=== PATIENT | female | born 2000 | race Caucasian/White ===

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

== ENCOUNTER 2023-02-12 13:22 | Inpatient (IN) | payer MEDICAID, OTHER ==
[~2023-02-12] VITALS: Ht 152.4 cm; Wt 63.2 kg
[~2023-02-12 13:22] MED LIST changes: +BUPR150T12 PO; +CITA20TA7 PO; +CLIN150C17 PO; +INVE234I IM; +PALI1TAB2 PO; +PALI1TAB3 PO; +ZYPR5TAB2 PO
[2023-02-12 14:59] LABS: HEMOGLOBIN 14.6 g/dl (12.0-15.5); MEAN CORPUSCULAR HEMOGLOBIN 31.5 pg (27.0-33.0); MEAN CORPUSCULAR HGB CONC 33.2 g/dl (32.0-36.5); PLATELET COUNT, AUTOMATED 231 10^3/uL (150-450); RED BLOOD COUNT 4.63 10^6/uL (4.00-5.40); WHITE BLOOD COUNT 10.1 10^3/uL (4.0-10.0)
[2023-02-12 15:30] LABS: BARBITURATES URINE NEGATIVE (NEGATIVE); BENZODIAZEPINES URINE NEGATIVE (NEGATIVE); COCAINE METABOLITE URINE NEGATIVE (NEGATIVE); METHADONE URINE NEGATIVE (NEGATIVE)
[2023-02-12 15:31] LABS: OPIATES URINE NEGATIVE (NEGATIVE); PHENCYCLIDINE URINE NEGATIVE (NEGATIVE)
[2023-02-12 15:32] LABS: ETHYL ALCOHOL (ETHANOL) < 0.003 % (0.000-0.010)
[2023-02-12 15:33] LABS: AMPHETAMINES LEVEL URINE POSITIVE (NEGATIVE); CANNABINOIDS URINE POSITIVE (NEGATIVE)
[2023-02-12 15:34] LABS: ALBUMIN 4.4 G/DL (3.2-5.2); ALKALINE PHOSPHATASE 82 U/L (46-116); ALT/SGPT 10 U/L (7.0-40); AST/SGOT 9 U/L (<34); BILIRUBIN,DIRECT 0.2 MG/DL (<0.4); BILIRUBIN,TOTAL 0.5 MG/DL (0.3-1.2); BLOOD UREA NITROGEN 10 MG/DL (9-23); CALCIUM LEVEL 9.8 MG/DL (8.5-10.1); CARBON DIOXIDE LEVEL 27 MMOL/L (20-31); CHLORIDE LEVEL 106 MMOL/L (98-107); CREATININE FOR GFR 0.63 MG/DL (0.55-1.30); GLOMERULAR FILTRATION RATE > 60.0 (>60); GLUCOSE, FASTING 79 MG/DL (60-100); POTASSIUM SERUM 4.2 MMOL/L (3.5-5.1); SALICYLATE LEVEL < 3.0 MG/DL (<30); SODIUM LEVEL 140 MMOL/L (136-145); TOTAL PROTEIN 7.7 G/DL (5.7-8.2)
[2023-02-12 15:36] LABS: THYROID STIMULATING HORMONE 0.619 uIU/ML (0.55-4.78)
[2023-02-12 15:37] LABS: HCG, SERUM QUALITATIVE NEGATIVE (NEGATIVE)
[2023-02-12] MEDS ORDERED: MOM 30ML SUSPENSION UDC PO PRN (18:15)
[2023-02-12] MEDS ORDERED: NICOTINE 21MG/24HR 1 EA TRANSDERMAL TD PRN (18:15)
[2023-02-12] MEDS ORDERED: diphenhydrAMINE 25MG CAP PO PRN (18:15)
[2023-02-12] MEDS ORDERED: MAALOX 30 ML SUSP *UDC PO PRN (18:15)
[2023-02-12] MEDS ORDERED: CITA40TA7 PO (18:49)
[2023-02-12] MEDS ORDERED: INVE234I IM (18:49)
[2023-02-12] MEDS ORDERED: PALI1TAB PO (18:49)
[2023-02-12] MEDS ORDERED: HOME MED LIST COMPLETE! XX SCH (18:50)
[2023-02-12 21:48] VITALS: BP 112/66; TEMP 97.4; O2SAT 99
[2023-02-13 06:15] VITALS: BP 105/64; TEMP 98.2; O2SAT 98
[2023-02-13] MEDS: CitaloPRAM (CeleXA) 20 MG TAB PO SCH (08:15)
[2023-02-13 18:25] VITALS: BP 116/68; TEMP 98.8; O2SAT 97
[2023-02-14 06:29] VITALS: BP 116/66; TEMP 98; O2SAT 96
[2023-02-14] MEDS: CitaloPRAM (CeleXA) 20 MG TAB PO SCH (11:29)
[2023-02-14] MEDS: traZODone 50 MG TAB PO PRN (20:26)
[2023-02-15 06:45] VITALS: BP 113/55; TEMP 97.7; O2SAT 98
[2023-02-15 08:30] LABS: CHOLESTEROL RISK RATIO 3.17 (<5); LDL CHOLESTEROL 63.2 MG/DL (<100)
[2023-02-15 08:32] LABS: HEMOGLOBIN A1c 4.4 % (4.0-6.0)
[2023-02-15] MEDS: CitaloPRAM (CeleXA) 20 MG TAB PO SCH (09:21)
[2023-02-15] MEDS: PALIPERIDONE 3MG ER TAB (INVEGA) PO SCH ×2 (10:08→20:02)
[2023-02-15 18:22] VITALS: BP 127/58; TEMP 97.5; O2SAT 95
[2023-02-16 06:55] VITALS: BP 125/57; TEMP 97.9; O2SAT 96
[2023-02-16] MEDS: PALIPERIDONE 3MG ER TAB (INVEGA) PO SCH ×2 (08:56→21:36)
[2023-02-16] MEDS: CitaloPRAM (CeleXA) 20 MG TAB PO SCH (08:57)
[2023-02-16 16:14] VITALS: BP 114/67; TEMP 97.6; O2SAT 96
[2023-02-17 06:55] VITALS: BP 126/72; TEMP 99; O2SAT 99
[2023-02-17] MEDS: PALIPERIDONE 3MG ER TAB (INVEGA) PO SCH ×2 (09:33→20:09)
[2023-02-17] MEDS: CitaloPRAM (CeleXA) 20 MG TAB PO SCH (09:33)
[2023-02-17] MEDS ORDERED: PALIPERIDONE PAL 234MG/1.5ML INJ (INVEGA)(FREE PSY INPT ONLY) IM ONE (14:00)
[2023-02-17 16:22] VITALS: BP 124/74; TEMP 98.1; O2SAT 96
[2023-02-17] MEDS: IBUPROFEN 400MG TAB PO PRN (17:16)
[2023-02-17] MEDS: traZODone 50 MG TAB PO PRN (20:09)
[2023-02-18 06:21] VITALS: BP 134/77; TEMP 98.2; O2SAT 100
[2023-02-18] MEDS: PALIPERIDONE 3MG ER TAB (INVEGA) PO SCH ×2 (08:01→20:25)
[2023-02-18] MEDS: CitaloPRAM (CeleXA) 20 MG TAB PO SCH (08:01)
[2023-02-18] MEDS: ACETAMINOPHEN TAB 650MG DOSE (2X325MG) PO PRN ×2 (09:29→22:00)
[2023-02-18 18:08] VITALS: BP 130/87; TEMP 97.9; O2SAT 98
[2023-02-18] MEDS: traZODone 50 MG TAB PO PRN (20:25)
[2023-02-19 05:59] VITALS: BP 141/70; TEMP 98.8; O2SAT 99
[2023-02-19] MEDS: PALIPERIDONE 3MG ER TAB (INVEGA) PO SCH ×2 (08:20→20:20)
[2023-02-19] MEDS: CitaloPRAM (CeleXA) 20 MG TAB PO SCH (08:20)
[2023-02-19 16:31] VITALS: BP 132/61; TEMP 98.9; O2SAT 97
[2023-02-19] MEDS: ACETAMINOPHEN TAB 650MG DOSE (2X325MG) PO PRN (17:28)
[2023-02-19] MEDS: traZODone 50 MG TAB PO PRN (20:20)
[2023-02-20 06:43] VITALS: BP 128/60; TEMP 97.9; O2SAT 96
[2023-02-20] MEDS: CitaloPRAM (CeleXA) 20 MG TAB PO SCH (07:51)
[2023-02-20 16:15] VITALS: BP 129/73; TEMP 98; O2SAT 100
[2023-02-20] MEDS: ACETAMINOPHEN TAB 650MG DOSE (2X325MG) PO PRN (16:33)
[2023-02-20] MEDS: PALIPERIDONE 3MG ER TAB (INVEGA) PO SCH (20:06)
[2023-02-20] MEDS: traZODone 50 MG TAB PO PRN (20:06)
[2023-02-21 06:46] VITALS: BP 120/59; TEMP 97.1; O2SAT 98
[2023-02-21] MEDS: CitaloPRAM (CeleXA) 20 MG TAB PO SCH (09:54)
[2023-02-21] MEDS: PALIPERIDONE 3MG ER TAB (INVEGA) PO SCH (20:08)
[2023-02-21] MEDS: traZODone 50 MG TAB PO PRN (20:08)
[2023-02-22] MEDS: ACETAMINOPHEN TAB 650MG DOSE (2X325MG) PO PRN (04:18)
[2023-02-22 05:44] VITALS: BP 112/59; TEMP 97.8; O2SAT 100
[2023-02-22] MEDS: CitaloPRAM (CeleXA) 20 MG TAB PO SCH (08:17)
[2023-02-22 18:24] VITALS: BP 129/83; TEMP 98; O2SAT 100
[2023-02-22] MEDS: QUEtiapine FUMARATE 25 MG TAB PO SCH (20:02)
[2023-02-23 06:34] VITALS: BP 119/56; TEMP 97.1; O2SAT 99
[2023-02-23] MEDS: CitaloPRAM (CeleXA) 20 MG TAB PO SCH (08:26)
[2023-02-23 19:03] VITALS: BP 118/72; TEMP 98.8; O2SAT 98
[2023-02-23] MEDS: PRAZOSIN 1 MG CAP PO SCH (22:11)
[2023-02-23] MEDS: QUEtiapine FUMARATE 25 MG TAB PO SCH (22:12)
[2023-02-24 06:30] VITALS: BP 128/62; TEMP 98.3; O2SAT 96
[2023-02-24] MEDS: CitaloPRAM (CeleXA) 20 MG TAB PO SCH (08:52)
[2023-02-24 15:57] VITALS: BP 115/53; TEMP 96.2; O2SAT 95
[2023-02-24] MEDS: QUEtiapine FUMARATE 25 MG TAB PO SCH (20:46)
[2023-02-24] MEDS: PRAZOSIN 1 MG CAP PO SCH (20:47)
[2023-02-24] MEDS: ACETAMINOPHEN TAB 650MG DOSE (2X325MG) PO PRN (20:49)
[2023-02-25 06:37] VITALS: BP 130/67; TEMP 97.5; O2SAT 97
[2023-02-25] MEDS: CitaloPRAM (CeleXA) 20 MG TAB PO SCH (10:00)
[2023-02-25 18:18] VITALS: BP 121/67; TEMP 98.3; O2SAT 96
[2023-02-25] MEDS: PRAZOSIN 1 MG CAP PO SCH (20:24)
[2023-02-25] MEDS: LORazepam 1 MG TAB PO SCH (20:25)
[2023-02-25] MEDS ORDERED: QUEtiapine FUMARATE 50MG TAB PO SCH (21:00)
[2023-02-26 06:12] VITALS: BP 118/63; TEMP 97.6; O2SAT 99
[2023-02-26 06:17] VITALS: BP 106/56; TEMP 97.3; O2SAT 96
[2023-02-26] MEDS: LORazepam 1 MG TAB PO SCH (09:53)
[2023-02-26] MEDS: CitaloPRAM (CeleXA) 20 MG TAB PO SCH (09:53)
[2023-02-26 16:25] VITALS: BP 120/62; TEMP 99; O2SAT 97
[2023-02-26] MEDS: LORazepam 2 MG TAB PO SCH (20:23)
[2023-02-26] MEDS: PRAZOSIN 1 MG CAP PO SCH (20:23)
[2023-02-26] MEDS: QUEtiapine FUMARATE 25 MG TAB PO SCH (20:23)
[2023-02-27 06:28] VITALS: BP 122/67; TEMP 98; O2SAT 97
[2023-02-27] MEDS: LORazepam 2 MG TAB PO SCH ×2 (08:47→20:02)
[2023-02-27] MEDS: CitaloPRAM (CeleXA) 20 MG TAB PO SCH (08:47)
[2023-02-27] MEDS: IBUPROFEN 400MG TAB PO PRN (18:19)
[2023-02-27 18:22] VITALS: BP 119/71; TEMP 98.5; O2SAT 95
[2023-02-27] MEDS: QUEtiapine FUMARATE 25 MG TAB PO SCH (20:02)
[2023-02-27] MEDS: ACETAMINOPHEN TAB 650MG DOSE (2X325MG) PO PRN (20:03)
[2023-02-27] MEDS: PRAZOSIN 1 MG CAP PO SCH (20:05)
[2023-02-28 07:23] VITALS: BP 156/79; TEMP 97.6; O2SAT 97
[2023-02-28] MEDS: CitaloPRAM (CeleXA) 20 MG TAB PO SCH (08:01)
[2023-02-28] MEDS: LORazepam 2 MG TAB PO SCH ×2 (08:02→20:24)
[2023-02-28 18:23] VITALS: BP 119/84; TEMP 97.4; O2SAT 96
[2023-02-28] MEDS: PRAZOSIN 1 MG CAP PO SCH (20:25)
[2023-02-28] MEDS: QUEtiapine FUMARATE 25 MG TAB PO SCH (20:26)
[2023-03-01] MEDS: ACETAMINOPHEN TAB 650MG DOSE (2X325MG) PO PRN (02:47)
[2023-03-01 05:58] VITALS: BP 123/73; TEMP 96.9; O2SAT 100
[2023-03-01] MEDS: CitaloPRAM (CeleXA) 20 MG TAB PO SCH (08:05)
[2023-03-01] MEDS: LORazepam 2 MG TAB PO SCH ×2 (08:06→19:50)
[2023-03-01 15:59] VITALS: BP 141/72; TEMP 97.7
[2023-03-01] MEDS: QUEtiapine FUMARATE 25 MG TAB PO SCH (19:50)
[2023-03-01 19:51] VITALS: BP 137/82
[2023-03-01] MEDS: PRAZOSIN 1 MG CAP PO SCH (19:51)
[2023-03-01] MEDS: IBUPROFEN 400MG TAB PO PRN (21:39)
[2023-03-02 06:41] VITALS: BP 130/70; TEMP 97.6; O2SAT 97
[2023-03-02] MEDS: CitaloPRAM (CeleXA) 20 MG TAB PO SCH (08:03)
[2023-03-02] MEDS: LORazepam 2 MG TAB PO SCH (08:03)
[2023-03-02] MEDS ORDERED: INVE234I IM (09:13)
[2023-03-02] MEDS ORDERED: LORA2TA PO ×3 (09:13→13:46)
[2023-03-02] MEDS ORDERED: HALO5TAB33 PO (09:13)
[2023-03-02] MEDS ORDERED: NICO21PAT TD (09:13)
[2023-03-02] MEDS ORDERED: MINI1CAP PO (09:13)
[2023-03-02] MEDS ORDERED: CITA40TA7 PO (09:13)
[2023-03-02] MEDS ORDERED: QUET1TAB17 PO (09:13)
== END 2023-03-02 11:30 | disposition home or self-care (01) | DRG 750 ==
LOC: M ED 13:22 → M ED INP 18:11 → M PSY 20:57
PROVIDERS: ADMIT Psychiatry & Neurology Psychiatry; ATTEND Student in an Organized Health Care Education/Training Program
DX: F20.2 Catatonic schizophrenia (principal); F17.210 Nicotine dependence, cigarettes, uncomplicated; F12.10 Cannabis abuse, uncomplicated; Z62.810 Personal history of physical and sexual abuse in childhood; Z56.0 Unemployment, unspecified; Z79.899 Other long term (current) drug therapy

== ENCOUNTER → 2023-05-18 | Outpatient (CLI) | payer OTHER, MEDICAID ==
[~2023-05-18] MED LIST changes: +CITA40TA7 PO; +HALO5TAB33 PO; +LORA2TA PO; +MINI1CAP PO; +NICO21PAT TD; +PALI1TAB PO; +QUET1TAB17 PO
[2023-05-18 14:29] LABS: HIV 1&2 SCREEN NEGATIVE (NEGATIVE)
[2023-05-18 14:38] LABS: HEPATITIS B CORE ANTIBODY IGM NEGATIVE (NEGATIVE); HEPATITIS C VIRUS ABY INDEX 0.03 INDEX (<0.8)
== END ==
LOC: M PLALAB 09:14
PROVIDERS: ATTEND Nurse Practitioner Family
DX: Z11.3 Encounter for screening for infections with a predominantly sexual mode of transmission (principal)

== ENCOUNTER 2024-01-03 20:53 | Inpatient (IN) | payer OTHER, MEDICAID ==
[~2024-01-03] VITALS: Ht 152.4 cm; Wt 65.9 kg
[~2024-01-03 20:53] MED LIST changes: +INVE234I INJ; +PRAZ1CAP PO; +PROP10TA56 PO
[2024-01-03 21:36] LABS: HEMATOCRIT 36.5 % (36.0-47.0); MEAN CORPUSCULAR HEMOGLOBIN 30.6 pg (27.0-33.0); MEAN CORPUSCULAR HGB CONC 32.9 g/dl (32.0-36.5); MEAN CORPUSCULAR VOLUME 93.1 fl (80.0-96.0); PLATELET COUNT, AUTOMATED 394 10^3/uL (150-450); RED BLOOD COUNT 3.92 10^6/uL (4.00-5.40); WHITE BLOOD COUNT 14.7 10^3/uL (4.0-10.0)
[2024-01-03 22:07] LABS: ETHYL ALCOHOL (ETHANOL) < 0.003 % (0.000-0.010)
[2024-01-03 22:09] LABS: ALBUMIN 3.4 G/DL (3.2-5.2); ALKALINE PHOSPHATASE 97 U/L (46-116); ALT/SGPT 25 U/L (7.0-40); AST/SGOT 10 U/L (<34); BILIRUBIN,DIRECT 0.3 MG/DL (<0.4); BILIRUBIN,TOTAL 0.6 MG/DL (0.3-1.2); BLOOD UREA NITROGEN 7 MG/DL (9-23); CALCIUM LEVEL 9.9 MG/DL (8.5-10.1); CARBON DIOXIDE LEVEL 25 MMOL/L (20-31); CHLORIDE LEVEL 102 MMOL/L (98-107); CREATININE FOR GFR 0.77 MG/DL (0.55-1.30); GLOMERULAR FILTRATION RATE > 60.0 (>60); GLUCOSE, FASTING 111 MG/DL (60-100); POTASSIUM SERUM 4.2 MMOL/L (3.5-5.1); SALICYLATE LEVEL < 3.0 MG/DL (<30); SODIUM LEVEL 134 MMOL/L (136-145)
[2024-01-03 22:11] LABS: THYROID STIMULATING HORMONE 0.153 uIU/ML (0.55-4.78)
[2024-01-03 22:15] LABS: HCG, SERUM QUALITATIVE NEGATIVE (NEGATIVE)
[2024-01-03 23:39] LABS: AMPHETAMINES LEVEL URINE NEGATIVE (NEGATIVE); BARBITURATES URINE NEGATIVE (NEGATIVE); BENZODIAZEPINES URINE NEGATIVE (NEGATIVE); COCAINE METABOLITE URINE NEGATIVE (NEGATIVE); METHADONE URINE NEGATIVE (NEGATIVE); OPIATES URINE NEGATIVE (NEGATIVE); PHENCYCLIDINE URINE NEGATIVE (NEGATIVE)
[2024-01-03 23:40] LABS: CANNABINOIDS URINE POSITIVE (NEGATIVE)
[2024-01-04] MEDS ORDERED: TRAZ-189 PO (10:56)
[2024-01-04] MEDS ORDERED: MED REC COMMENT (10:57)
[2024-01-04] MEDS ORDERED: HOME MED LIST COMPLETE! XX SCH (11:00)
[2024-01-04] MEDS ORDERED: traZODone 50 MG TAB PO PRN (12:10)
[2024-01-04] MEDS ORDERED: MOM 30ML SUSPENSION UDC PO PRN (12:10)
[2024-01-04] MEDS ORDERED: MAALOX 30 ML SUSP *UDC PO PRN (12:10)
[2024-01-04] MEDS: PRAZOSIN 1 MG CAP PO SCH (22:00)
[2024-01-04] MEDS: PROPRANOLOL 10 MG TAB PO SCH (22:01)
[2024-01-04] MEDS: traZODone 100 MG TAB PO SCH (22:02)
[2024-01-05 06:43] VITALS: BP 128/60; TEMP 97.9; O2SAT 94
[2024-01-05] MEDS: CitaloPRAM (CeleXA) 20 MG TAB PO SCH (08:36)
[2024-01-05] MEDS: PALIPERIDONE PAL 234MG/1.5ML INJ (INVEGA)(FREE PSY INPT ONLY) IM ONE (15:21)
[2024-01-05 17:30] VITALS: BP 114/80; TEMP 98.6
[2024-01-06 06:29] VITALS: BP 110/60; TEMP 97.4; O2SAT 98
[2024-01-06 16:58] VITALS: BP 102/78; TEMP 97.3; O2SAT 95
[2024-01-07] MEDS: hydrOXYzine 50 MG TAB PO PRN (14:23)
[2024-01-07 16:04] VITALS: BP 117/56; TEMP 98.3; O2SAT 98
[2024-01-08 06:13] VITALS: BP 112/65; TEMP 97.1; O2SAT 97
[2024-01-08 15:49] VITALS: BP 116/73; TEMP 98.6; O2SAT 96
[2024-01-09 06:28] VITALS: BP 143/65; TEMP 97.4; O2SAT 98
[2024-01-09 15:55] VITALS: BP 107/65; TEMP 97.8; O2SAT 98
[2024-01-09] MEDS: ACETAMINOPHEN TAB 650MG DOSE (2X325MG) PO PRN (23:04)
[2024-01-10 06:18] VITALS: BP 115/68; TEMP 97.6; O2SAT 97
[2024-01-10 15:58] VITALS: BP 111/57; TEMP 98.9; O2SAT 95
[2024-01-11] MEDS: diphenhydrAMINE 25MG CAP PO PRN (00:03)
[2024-01-11 06:19] VITALS: BP 115/59; TEMP 97.2; O2SAT 98
[2024-01-11 08:02] VITALS: BP 123/80
[2024-01-11] MEDS ORDERED: PROP10TA56 PO (08:49)
[2024-01-11] MEDS ORDERED: CITA40TA7 PO (08:49)
[2024-01-11] MEDS ORDERED: PRAZ1CAP PO (08:49)
[2024-01-11] MEDS ORDERED: TRAZ-189 PO (08:49)
[2024-01-11] MEDS ORDERED: INVE234I INJ (08:49)
[2024-01-11] MEDS: IBUPROFEN 400MG TAB PO PRN (09:35)
[2024-01-11] MEDS: PALIPERIDONE PAL 156MG/1ML INJ(INVEGA)(FREE PSY INPT ONLY) IM ONE (10:02)
== END 2024-01-11 13:24 | disposition home or self-care (01) | DRG 750 ==
LOC: M ED 20:53 → M ED INP 01-04 12:08 → M PSY 01-04 14:17
PROVIDERS: ADMIT Psychiatry & Neurology Psychiatry; ATTEND Psychiatry & Neurology Psychiatry
DX: F20.9 Schizophrenia, unspecified (principal); F12.10 Cannabis abuse, uncomplicated; Z62.810 Personal history of physical and sexual abuse in childhood; Z56.0 Unemployment, unspecified; Z79.899 Other long term (current) drug therapy

== ENCOUNTER 2024-02-19 18:17 | Inpatient (IN) | payer MEDICAID, OTHER ==
[~2024-02-19] VITALS: Ht 152.4 cm; Wt 67.4 kg
[~2024-02-19 18:17] MED LIST changes: +MED REC COMMENT; +TRAZ-189 PO
[2024-02-19 19:21] LABS: HEMATOCRIT 44.7 % (36.0-47.0); HEMOGLOBIN 15.6 g/dl (12.0-15.5); MEAN CORPUSCULAR HEMOGLOBIN 31.3 pg (27.0-33.0); MEAN CORPUSCULAR HGB CONC 34.9 g/dl (32.0-36.5); MEAN CORPUSCULAR VOLUME 89.6 fl (80.0-96.0); PLATELET COUNT, AUTOMATED 310 10^3/uL (150-450); RED BLOOD COUNT 4.99 10^6/uL (4.00-5.40); WHITE BLOOD COUNT 7.5 10^3/uL (4.0-10.0)
[2024-02-19 19:44] LABS: ETHYL ALCOHOL (ETHANOL) < 0.003 % (0.000-0.010)
[2024-02-19 19:45] LABS: SALICYLATE LEVEL < 3.0 MG/DL (<30)
[2024-02-19 19:47] LABS: THYROID STIMULATING HORMONE 0.849 uIU/ML (0.55-4.78)
[2024-02-19 19:48] LABS: ALBUMIN 4.5 G/DL (3.2-5.2); ALKALINE PHOSPHATASE 99 U/L (46-116); ALT/SGPT 10 U/L (7.0-40); AST/SGOT 10 U/L (<34); BILIRUBIN,DIRECT 0.1 MG/DL (<0.4); BILIRUBIN,TOTAL 0.4 MG/DL (0.3-1.2); BLOOD UREA NITROGEN < 5 MG/DL (9-23); CALCIUM LEVEL 10.6 MG/DL (8.5-10.1); CARBON DIOXIDE LEVEL 26 MMOL/L (20-31); CHLORIDE LEVEL 104 MMOL/L (98-107); CREATININE FOR GFR 0.73 MG/DL (0.55-1.30); GLOMERULAR FILTRATION RATE > 60.0 (>60); GLUCOSE, FASTING 91 MG/DL (60-100); POTASSIUM SERUM 3.7 MMOL/L (3.5-5.1); SODIUM LEVEL 136 MMOL/L (136-145); TOTAL PROTEIN 8.5 G/DL (5.7-8.2)
[2024-02-19 19:49] LABS: HCG, SERUM QUALITATIVE NEGATIVE (NEGATIVE)
[2024-02-19 20:19] LABS: AMPHETAMINES LEVEL URINE NEGATIVE (NEGATIVE); BARBITURATES URINE NEGATIVE (NEGATIVE); BENZODIAZEPINES URINE NEGATIVE (NEGATIVE); COCAINE METABOLITE URINE NEGATIVE (NEGATIVE); METHADONE URINE NEGATIVE (NEGATIVE); OPIATES URINE NEGATIVE (NEGATIVE); PHENCYCLIDINE URINE NEGATIVE (NEGATIVE)
[2024-02-19 20:20] LABS: CANNABINOIDS URINE POSITIVE (NEGATIVE)
[2024-02-19] MEDS ORDERED: MOM 30ML SUSPENSION UDC PO PRN (20:35)
[2024-02-19] MEDS ORDERED: MAALOX 30 ML SUSP *UDC PO PRN (20:35)
[2024-02-19] MEDS ORDERED: TRAZ-257 PO (22:18)
[2024-02-19] MEDS ORDERED: CELE40TA PO (22:18)
[2024-02-19] MEDS ORDERED: HOME MED LIST COMPLETE! XX SCH (22:20)
[2024-02-19 22:26] VITALS: BP 112/74; TEMP 97.5; O2SAT 98
[2024-02-20 06:03] VITALS: BP 121/68; TEMP 98.1; O2SAT 100
[2024-02-20 15:56] VITALS: BP 128/52; TEMP 98.1; O2SAT 97
[2024-02-20] MEDS: CitaloPRAM (CeleXA) 20 MG TAB PO ONE (17:45)
[2024-02-21 16:03] VITALS: BP 139/77; TEMP 97.6; O2SAT 97
[2024-02-21] MEDS: ACETAMINOPHEN TAB 650MG DOSE (2X325MG) PO PRN (16:20)
[2024-02-21] MEDS: diphenhydrAMINE 25MG CAP PO PRN (20:07)
[2024-02-21] MEDS: risperiDONE 2 MG TAB PO SCH (20:07)
[2024-02-22] MEDS: risperiDONE 2 MG TAB PO SCH (09:04)
[2024-02-22] MEDS: IBUPROFEN 400MG TAB PO PRN (17:01)
[2024-02-22 17:24] VITALS: BP 140/78; TEMP 99
[2024-02-22] MEDS: traZODone 50 MG TAB PO PRN (20:50)
[2024-02-23 06:40] VITALS: BP 151/62; TEMP 98.2; O2SAT 100
[2024-02-23 15:18] VITALS: BP 132/61; TEMP 97; O2SAT 96
[2024-02-23] MEDS: OLANZapine ORAL DISINTEGRATING TAB 5MG PO PRN (22:12)
[2024-02-24 06:59] VITALS: BP 133/92; TEMP 97.2; O2SAT 98
[2024-02-24 14:38] VITALS: BP 139/70; TEMP 97.5; O2SAT 97
[2024-02-24] MEDS: ACETAMINOPHEN 325 MG TAB PO PRN (15:11)
[2024-02-25 06:13] VITALS: BP 124/76; TEMP 97; O2SAT 98
[2024-02-25 15:20] VITALS: BP 122/84; TEMP 98.2; O2SAT 94
[2024-02-26] MEDS: traZODone 100 MG TAB PO PRN (00:24)
[2024-02-26 06:36] VITALS: BP 130/88; TEMP 98.3; O2SAT 100
[2024-02-26 15:16] VITALS: BP 116/82; TEMP 97.5; O2SAT 100
[2024-02-27 06:14] VITALS: BP 124/76; TEMP 97; O2SAT 95
[2024-02-27 16:27] VITALS: BP 130/76; TEMP 97.4; O2SAT 95
[2024-02-28 14:40] VITALS: BP 149/59; TEMP 97.9; O2SAT 100
[2024-02-28] MEDS: traZODone 100 MG TAB PO SCH (20:42)
[2024-02-29 06:21] VITALS: BP 104/60; TEMP 97.4; O2SAT 98
[2024-02-29] MEDS: PALIPERIDONE PAL 234MG/1.5ML INJ (INVEGA)(FREE PSY INPT ONLY) IM ONE (09:42)
[2024-02-29] MEDS: LORazepam 2 MG TAB PO STA (10:26)
[2024-02-29 16:49] VITALS: BP 105/55; TEMP 98.2
[2024-02-29] MEDS: traZODone 100 MG TAB PO SCH (20:37)
[2024-03-01 06:03] VITALS: BP 95/59; TEMP 97.9; O2SAT 99
[2024-03-01 15:26] VITALS: BP 116/68; TEMP 98.7; O2SAT 98
[2024-03-02 06:28] VITALS: BP 126/71; TEMP 98.4; O2SAT 96
[2024-03-02] MEDS ORDERED: INVE234I IM (07:27)
[2024-03-02] MEDS ORDERED: TRAZ-257 PO (07:27)
[2024-03-03 06:04] VITALS: BP 132/63; TEMP 97.9; O2SAT 98
== END 2024-03-03 10:45 | disposition home or self-care (01) | DRG 750 ==
LOC: M ED 18:17 → M ED INP 20:34 → M PSY 21:42
PROVIDERS: ADMIT Psychiatry & Neurology Psychiatry; ATTEND Psychiatry & Neurology Psychiatry
DX: F20.0 Paranoid schizophrenia (principal); F40.10 Social phobia, unspecified; Z62.810 Personal history of physical and sexual abuse in childhood; Z81.1 Family history of alcohol abuse and dependence; Z81.3 Family history of other psychoactive substance abuse and dependence; F43.10 Post-traumatic stress disorder, unspecified; F60.3 Borderline personality disorder; F12.10 Cannabis abuse, uncomplicated